=== PATIENT | male | born 1995 | race Caucasian/White ===

== ENCOUNTER 2017-10-01 13:39 | Emergency (ER) | payer OTHER, BC ==
[~2017-10-01] VITALS: Ht 175.3 cm; Wt 127.2 kg
[~2017-10-01 13:39] MED LIST: FLEXERIL10 MG PO; MOTRIN800 MG PO; NAPROXEN500 MG PO
[2017-10-01] MEDS ORDERED: FLEXERIL10 MG PO (19:44)
[2017-10-01] MEDS ORDERED: MOTRIN600 MG PO (19:44)
[2017-10-01 19:51] VITALS: BP 123/67
== END 2017-10-01 19:51 | disposition home or self-care (01) ==
LOC: EME 13:39
DX: S39.012A Strain of muscle, fascia and tendon of lower back, initial encounter (principal); S80.11XA Contusion of right lower leg, initial encounter; S16.1XXA Strain of muscle, fascia and tendon at neck level, initial encounter; R51 Headache; V43.62XA Car passenger injured in collision with other type car in traffic accident, initial encounter; Y92.410 Unspecified street and highway as the place of occurrence of the external cause
CPT/HCPCS: 70450; 72040; 72100; 73590; 99281; 99284